=== PATIENT | female | born 1975 ===

== ENCOUNTER 2021-01-12 09:19 | Emergency (ER) | payer OTHER, SELFPAY ==
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
[2021-01-12 09:25] VITALS: BP 108/63; RESP 19; TEMP 36.6; O2SAT 98; BMI 22.6
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
== END 2021-01-12 11:15 | disposition home or self-care (01) ==
PROVIDERS: Emergency Provider Emergency Medicine Emergency Medical Services
DX: S39.012A Strain of muscle, fascia and tendon of lower back, initial encounter (principal); M25.511 Pain in right shoulder; V43.62XA Car passenger injured in collision with other type car in traffic accident, initial encounter; Y93.9 Activity, unspecified; Y92.410 Unspecified street and highway as the place of occurrence of the external cause; Y99.9 Unspecified external cause status
CPT/HCPCS: 72100; 73030; 99283

== ENCOUNTER 2023-10-19 13:05 | Outpatient (AMB) | payer OTHER, SELFPAY ==
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
[2023-10-19 13:10] VITALS: BMI 21.9
== END 2023-10-19 14:20 | disposition home or self-care (01) ==
PROVIDERS: Visit Provider Orthopaedic Surgery
DX: S62.317A Displaced fracture of base of fifth metacarpal bone, left hand, initial encounter for closed fracture (principal); Z04.3 Encounter for examination and observation following other accident
CPT/HCPCS: 26600; 99203

== ENCOUNTER 2023-10-19 13:29 | Outpatient (REF) | payer OTHER, SELFPAY ==
--- NOTE | ~2023-10-19 | XR_ITS ---
EXAMINATION: XR HAND, LEFT CLINICAL INFORMATION: Pain in the left hand COMPARISON: None available. TECHNIQUE: PA, lateral, and oblique views of the left hand. FINDINGS: There is a nondisplaced subtle irregular transverse fracture through the proximal metaphysis of the 5th metacarpal. Small amount of callus versus displaced tiny osseous fragment noted. The remaining bones or the soft tissues are unremarkable. XR/XR hand LT min 3V IMPRESSION: Nondisplaced fracture of the proximal 5th metacarpal . Electronically signed by: Robert Alexander MD 11/09/2023 07:08 AM EDT
== END 2023-10-19 13:30 | disposition home or self-care (01) ==
LOC: HO.HOSX 13:29
PROVIDERS: Visit Provider Orthopaedic Surgery
DX: M79.642 Pain in left hand (principal)
CPT/HCPCS: 26600; 73130

== ENCOUNTER 2024-04-26 14:53 | Outpatient (REF) | payer OTHER, SELFPAY | END 2024-04-26 14:54 | disposition home or self-care (01) | LOC: HO.HOSX 14:53 | PROVIDERS: Visit Provider Orthopaedic Surgery | DX: Z13.89 Encounter for screening for other disorder (principal) ==

== ENCOUNTER 2024-05-28 19:40 | Emergency (ER) | payer OTHER, SELFPAY ==
[2024-05-28 20:02] VITALS: BP 124/79; PULSE 75; RESP 20; TEMP 36.8; O2SAT 100; BMI 24.8
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
[2024-05-28] MEDS: Ondansetron ODT 4 MG TAB.RAPDIS TRANSLINGU (20:14)
[2024-05-28] MEDS: Ketorolac Tromethamine 15 MG/ML VIAL IM (20:14)
[2024-05-28 20:15] VITALS: RESP 20
[2024-05-28] MEDS: Morphine Sulfate 4 MG/ML CARTRIDGE IM (20:15)
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
[2024-05-28 22:14] VITALS: BP 96/44; PULSE 52; RESP 16; TEMP 36.4; O2SAT 98
[2024-05-28] MEDS: Bacitracin Oint 0.9 GM PACKET 3 APPL TOPICAL (22:27)
[2024-05-28 23:09] VITALS: BP 96/44; PULSE 52; RESP 16; TEMP 36.4; O2SAT 98
== END 2024-05-28 23:09 | disposition home or self-care (01) ==
PROVIDERS: Emergency Provider Emergency Medicine; PCP Internal Medicine
DX: T24.291A Burn of second degree of multiple sites of right lower limb, except ankle and foot, initial encounter (principal); X12.XXXA Contact with other hot fluids, initial encounter; M79.661 Pain in right lower leg; Y93.G3 Activity, cooking and baking; Y92.030 Kitchen in apartment as the place of occurrence of the external cause; Y99.9 Unspecified external cause status
CPT/HCPCS: 96372; 99283; 99284; J1885; J2270